=== PATIENT | female | born 1960 | race Caucasian/White ===

== ENCOUNTER 2018-10-08 09:08 | Day surgery (SDC) | payer OTHER ==
[2018-10-07 15:14] LABS: Absolute Lymphocytes (CBC) 2.6 K/uL (0.7-4.9); Absolute Monocytes 0.5 K/uL (0.1-1.3); Absolute Neutrophil 6.7 K/uL (1.8-8.0); Basophils % 0.8 % (0-1.3); Eosinophils % 0.9 % (0-4.4); Hematocrit 38.4 % (36.0-45.0); Lymphocytes % 25.9 % (15.3-44.8); MPV 7.4 fL (7.6-11.3); Monocytes % 5.3 % (3.3-12.3)
--- NOTE | 2018-10-07 16:03 | RAD REPORT ---
EXAM DESCRIPTION: RAD - Chest Pa And Lat (2 Views) - 10/07/2018 3:52 pm CLINICAL HISTORY: preop Chest pain. COMPARISON: No comparisons FINDINGS: The lungs are clear. The heart is normal in size. No displaced fractures. IMPRESSION: No acute or concerning finding suspected.
--- NOTE | 2018-10-08 07:00 | EKG ---
Test Date: 2018-10-07 Test Time: 15:16:43 [facility] Supervisor: KALYAN MEASUREMENT RESULTS: Intervals: Rate: 79 [place]: 148 QRSD: 82 QT: 380 QTc: 435 [place]: P: 70 [place]: 148 QRS: 63 T: 63 INTERPRETIVE STATEMENTS: Normal sinus rhythm Nonspecific ST abnormality Abnormal ECG No previous ECG available for comparison Electronically Signed On 10-08-18 06:59:56 YARD HAND by Jesus Harrell
[2018-10-08] MEDS ORDERED: CEFAZOLIN 1GM (PREMIX IV) 1 GM/50 ML BAG ONE (09:30)
[2018-10-08] MEDS ORDERED: Ringers Lactate 1,000 ML IV ONE (09:30)
[2018-10-08] MEDS ORDERED: FENTANYL CITR 100 MCG/2 ML ONE (10:47)
[2018-10-08] MEDS ORDERED: PROPOFOL 200 MG/20 ML VIAL IV ONE (10:47)
[2018-10-08] MEDS ORDERED: LIDOCAINE 1% MPF 5 ML VIAL ONE (10:48)
[2018-10-08] MEDS ORDERED: MIDAZOLAM HCL 2 MG/2 ML INJ ONE (10:48)
[2018-10-08] MEDS ORDERED: KETOROLAC 30 MG/ML INJ ONE (11:14)
[2018-10-08] MEDS ORDERED: ONDANSETRON 4 MG/2 ML VIAL ONE (11:14)
[2018-10-08] MEDS ORDERED: CODEINE 30MG/APAP 300MG TAB ONE (12:37)
--- NOTE | 2018-11-27 20:29 | OP ---
Date of Procedure: 10/08/2018 Surgeon: Slim Rendon MD Preoperative Diagnosis: A mass of the right middle finger. 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 Anesthesia: General. Procedure In Detail: After satisfactory induction of general anesthesia, the right arm was prepped w ith Betadine scrub, Betadine paint, dry sterile drapes were applied in the usual manner. The arm was elevated and exsanguinated with Esmarch. Tourniquet was inflated to 250 mmHg. Hand placed on the R otalok table. A felt-tip marking pen was used to outline the incision over the dorsum of the right m iddle finger. Dissection proceeded down. The flaps were elevated. The patient had a what appeared to be giant cell tumor extending underneath the extensor tendon, extending in both the radial and uln ar sides. The mass was excised completely with tenotomy scissors and forceps. After the mass was ex cised, tourniquet was released. Electrocautery was used for hemostasis. The wound was closed with 4 -0 Prolene simple sutures in vertical mattress, dressed with Xeroform, 2-inch Alexandre. The patient carrillo erated the procedure well and returned to recovery room. IKER/IVON Voice ID: [id number] Report ID: [id number]
== END 2018-10-08 13:05 | disposition home or self-care (01) ==
LOC: OR 09:08
PROVIDERS: ATTEND Specialist
PROC: 0LB70ZZ Excision of Right Hand Tendon, Open Approach (ICD-10-PCS; principal; 2018-10-08 10:30)
DX: D48.1 Neoplasm of uncertain behavior of connective and other soft tissue (principal)
CPT/HCPCS: 36415; 71046; 85025; 88305; 93005; J0690; J2250; J2405; J2704; J3010